=== PATIENT | female | born 1955 | race Asian ===

== ENCOUNTER 2017-10-01 19:19 | Emergency (ER) | payer MEDICAID, OTHER ==
[~2017-10-01] VITALS: Ht 149.9 cm; Wt 57.6 kg
[2017-10-01 19:30] VITALS: BP 165/84
== END 2017-10-01 22:57 | disposition home or self-care (01) ==
LOC: ER 19:19
DX: R51 Headache (principal); E11.9 Type 2 diabetes mellitus without complications; I10 Essential (primary) hypertension; E78.5 Hyperlipidemia, unspecified; M10.9 Gout, unspecified
CPT/HCPCS: 70450